=== PATIENT | female | born 1950 | race Caucasian/White ===

== ENCOUNTER 2016-12-09 23:17 | Emergency (ER) | payer MEDICARE, OTHER ==
[~2016-12-09 23:17] MED LIST: ACET500CAP PO; ASA5GR PO; ASAB PO; ATEN100 PO; ATEN50 PO; ATRONASAL6 NAS; AZO-STANDARD95 MG OR; C1 PO; C25 PO; C5 PO; CEFT5 PO; CENTRUM PO; CENTRUM TAB1 TAB PO; CIP2 PO; CLEOCIN300 MG PO; COMBIVENT INH; COUMADIN10 MG PO; COUMADIN6 MG PO; COUMADIN7.5 MG PO; CYMBALTA60 PO; D.O.S.100 MG PO; DEPAKOT500 PO; DEPAKOTEER PO; DSS PO; DUONEB INH; FIORICET OR; FLEX PO; FLONASE NAS; FLOVENT220 INH; FLUOXETINE40 MG OR; FOLIC PO; FORTAMET500 MG PO; GLUCAGON IM/SC; GLUCAGON IV/IM/SC; GLUCOPHXR PO; HUMALOG SC; IMDUR30 PO; IMDUR60 PO; IMU PO; IMURAN50 M1 OR; IMURAN50 MG OR; INSNOVR SC; JANTOVEN6 MG PO; JANTOVEN7.5 MG PO; KAPIDEX60 MG PO; KLONO1 PO; KLONO2 PO; L40 PO; LANTUS FOR SC; LANTUS SC; LEVEMIR SC; LEVOTHROID137 MCG PO; LEVOTHROID200 MCG PO; LEVOTHYROXIN125 MCG PO; LEVOTHYROXIN137 MCG PO; LINZESS 290 M290 MCG PO; LORT7 PO; LYRICA300 MG PO; LYRICA75 PO; METHOC750B PO; MEVACOR PO; MEVACOR40 MG PO; MIRALAXPKT PO; MORPHINE SULFATE; NABUMETONE PO; NABUMETONE750 MG PO; NEUR600 PO; NEUR800 PO; NOVOLOG SC; NOVOPEN SC; NOVOPENMIX SC; NYSTATPOW TOP; OMNICEF300 PO; OPANA; OPANA ER10 MG PO; OPANA ER15 MG PO; OPANA ER30 MG PO; OXYCOD PO; PEP20 PO; PEPCID40 MG OR; PEPCID40 MG PO; PERPHENAZINE2 MG OR; PLAVIX PO; PR25 PO; PRILOSEC40 MG PO; PRIN5 PO; PROVHFA INH; PROZAC40 MG PO; RISP4 PO; ROXICODONE15 MG PO; ROXICODONE30 MG PO; SINGULAIR1 PO; SYN112 PO; SYN125 PO; SYNTHROID137 MCG PO; SYNTHROID200 MCG PO; TOPAMAX100 PO; TOPAMAX25 PO; TRAZ100 PO; TRAZ50 PO; TRILEP150 PO; TUSSIN DM1 M1 OR; TYLENOL 8 HR650 MG PO; VITAMIN D1000 UNI1 PO; VITD PO; WARFARIN; XARELTO20 MG PO; ZESTRIL5 MG PO; ZITHROMAX500 MG PO; ZOFRAN4 PO; ZYRTEC ALLGY10 MG PO; [UNRECOGNIZED DRUG - OTHER]
[2016-12-10 00:06] LABS: BASOPHILS 0.4 %; BASOPHILS ABSOLUTE 0.03 10/3/uL (0.0-0.16); EOSINOPHILS 1.1 %; EOSINOPHILS ABSOLUTE 0.08 10/3/uL (0.0-0.53); ER CBC TAT 0 Hrs 05 Mins; HEMATOCRIT 36.4 % (36.0-48.0); IMMATURE GRANULOCYTES 0.6 %; IMMATURE GRANULOCYTES ABSOLUTE 0.04 10/3/uL (0.0-0.11); LYMPHOCYTES 22.6 %; MEAN CORPUSCULAR HEMOGLOB 30.5 pg (26.0-34.0); MEAN PLATELET VOLUME 9.7 fL (9.2-13.0); MONOCYTES 6.6 %; MONOCYTES ABSOLUTE 0.47 10/3/uL (0.21-1.20); NEUTROPHILS 68.7 %; NEUTROPHILS ABSOLUTE 4.86 10/3/uL (2.02-8.40); PLATELET COUNT 234 10/3/uL (150-400); RED CELL COUNT 3.93 10/6/uL (4.0-5.6); WHITE BLOOD CELLS 7.1 10/3/uL (4.5-10.5)
[2016-12-10 00:07] LABS: MANUAL DIFF NO %; MEAN CORPUSCULAR VOLUME 92.6 fL (80-100); RBC DISTRIBUTION WIDTH 14.1 % (12.0-16.0)
[2016-12-10 00:11] LABS: INTERNATIONAL NORMAL RATI 1.6 UNITS (-); PROTIME (NOT ORD) 19.1 SEC (12.0-14.5)
[2016-12-10 00:41] LABS: A/G RATIO 0.9 (0.7-1.9); ALBUMIN 3.4 G/DL (3.5-5.0); ALKALINE PHOSPHATASE 182 U/L (45-117); BUN (BLOOD UREA NITROGEN) 13 MG/DL (6-23); CHLORIDE, SERUM 95 MMOL/L (96-112); CO2 (CARBON DIOXIDE) 31 MMOL/L (24-34); CREATININE 0.83 MG/DL (0.55-1.02); GFR AFRICAN AMERICAN 85 ML/MIN (>=60); GFR NON AFRICAN AMERICAN 73 ML/MIN (>=60); GLOBULIN 3.7 G/DL (2.5-4.1); SGOT(AST) 15 U/L (5-40); SGPT(ALT) 15 U/L (5-65); TOTAL BILIRUBIN 0.6 MG/DL (0-1.2); TOTAL PROTEIN 7.1 G/DL (6.0-8.5); TROPONIN I <0.02 NG/ML (<0.05)
[2016-12-10 00:47] LABS: CALCIUM, SERUM 8.8 MG/DL (8.5-10.4); GLUCOSE, SERUM 293 MG/DL (60-99); POTASSIUM, SERUM 4.4 MMOL/L (3.5-5.3); SODIUM, SERUM 136 MMOL/L (135-148)
[2017-01-07] MEDS ORDERED: CLEOCIN300 MG PO (16:46)
[2017-01-07] MEDS ORDERED: LIOR10 PO (16:46)
[2017-01-07] MEDS ORDERED: HUMALOG SC (16:47)
[2017-01-07] MEDS ORDERED: FLUCON1 PO (16:47)
[2017-01-07] MEDS ORDERED: NITROSTAT0.4 MG SL (16:48)
[2017-01-07] MEDS ORDERED: ATROVENTUD INH (16:48)
[2017-01-07] MEDS ORDERED: NYS500UDL PO (16:49)
[2017-01-11] MEDS ORDERED: MUCINEX600 MG PO (16:15)
[2017-01-11] MEDS ORDERED: NEUR300 PO (16:16)
[2017-01-11] MEDS ORDERED: VOLTAREN1 % TOP (16:17)
[2017-01-11] MEDS ORDERED: XOPENEX1.25 MG/3 INH (16:18)
[2017-01-12] MEDS ORDERED: PLAVIX PO (10:25)
[2017-01-12] MEDS ORDERED: LIPITOR40 PO (10:26)
== END 2016-12-10 02:37 | disposition home or self-care (01) ==
LOC: ER 23:17
PROVIDERS: Emergency Medicine
DX: R07.89 Other chest pain (principal); L03.115 Cellulitis of right lower limb; Z88.1 Allergy status to other antibiotic agents; Z88.0 Allergy status to penicillin; Z88.2 Allergy status to sulfonamides; Z88.5 Allergy status to narcotic agent; Z91.09 Other allergy status, other than to drugs and biological substances; Z91.018 Allergy to other foods; Z91.013 Allergy to seafood; Z91.048 Other nonmedicinal substance allergy status; Z79.4 Long term (current) use of insulin; Z79.84 Long term (current) use of oral hypoglycemic drugs; Z79.82 Long term (current) use of aspirin; Z79.899 Other long term (current) drug therapy
CPT/HCPCS: 71010; 80053; 84484; 85025; 85610; 93005; 96374; 99285; A9270-GY; J1885; J2405

== ENCOUNTER 2016-12-31 19:05 | Emergency (ER) | payer BC, MEDICARE ==
[2016-12-31 17:50] LABS: BASOPHILS 0.1 %; BASOPHILS ABSOLUTE 0.01 10/3/uL (0.0-0.16); EOSINOPHILS 0.8 %; EOSINOPHILS ABSOLUTE 0.06 10/3/uL (0.0-0.53); HEMATOCRIT 34.2 % (36.0-48.0); HEMOGLOBIN 11.4 g/dL (12.0-16.0); IMMATURE GRANULOCYTES 0.4 %; IMMATURE GRANULOCYTES ABSOLUTE 0.03 10/3/uL (0.0-0.11); LYMPHOCYTES 14.8 %; MEAN CORPUS HGB CONC 33.3 g/dL (32.0-36.0); MEAN CORPUSCULAR HEMOGLOB 30.2 pg (26.0-34.0); MEAN CORPUSCULAR VOLUME 90.5 fL (80-100); MEAN PLATELET VOLUME 9.5 fL (9.2-13.0); MONOCYTES 4.8 %; MONOCYTES ABSOLUTE 0.36 10/3/uL (0.21-1.20); NEUTROPHILS 79.1 %; NEUTROPHILS ABSOLUTE 5.88 10/3/uL (2.02-8.40); PLATELET COUNT 247 10/3/uL (150-400); RBC DISTRIBUTION WIDTH 14.2 % (12.0-16.0); RED CELL COUNT 3.78 10/6/uL (4.0-5.6); WHITE BLOOD CELLS 7.4 10/3/uL (4.5-10.5)
[2016-12-31 17:51] LABS: MANUAL DIFF NO %
[2016-12-31 18:05] LABS: PARTIAL THROMBO TIME 33.6 SEC (22.5-37.2)
[2016-12-31 18:07] LABS: BUN (BLOOD UREA NITROGEN) 14 MG/DL (6-23); CALCIUM, SERUM 8.1 MG/DL (8.5-10.4); CHEST PAIN PROFILE TAT 0 Hrs 21 Mins; CHLORIDE, SERUM 96 MMOL/L (96-112); CO2 (CARBON DIOXIDE) 35 MMOL/L (24-34); CREATININE 0.88 MG/DL (0.55-1.02); D-DIMER QUANTITATIVE 0.55 ug/mLFEU (< 0.50); GFR AFRICAN AMERICAN 79 ML/MIN (>=60); GFR NON AFRICAN AMERICAN 68 ML/MIN (>=60); POTASSIUM, SERUM 3.8 MMOL/L (3.5-5.3); SODIUM, SERUM 136 MMOL/L (135-148); TROPONIN I <0.02 NG/ML (<0.05)
[2016-12-31 18:09] LABS: GLUCOSE, SERUM 136 MG/DL (60-99)
[2016-12-31 18:10] LABS: PROTIME (NOT ORD) 13.4 SEC (12.0-14.5)
[2017-01-07] MEDS ORDERED: CLEOCIN300 MG PO (16:46)
[2017-01-07] MEDS ORDERED: LIOR10 PO (16:46)
[2017-01-07] MEDS ORDERED: FLUCON1 PO (16:47)
[2017-01-07] MEDS ORDERED: HUMALOG SC (16:47)
[2017-01-07] MEDS ORDERED: NITROSTAT0.4 MG SL (16:48)
[2017-01-07] MEDS ORDERED: ATROVENTUD INH (16:48)
[2017-01-07] MEDS ORDERED: NYS500UDL PO (16:49)
[2017-01-11] MEDS ORDERED: MUCINEX600 MG PO (16:15)
[2017-01-11] MEDS ORDERED: NEUR300 PO (16:16)
[2017-01-11] MEDS ORDERED: VOLTAREN1 % TOP (16:17)
[2017-01-11] MEDS ORDERED: XOPENEX1.25 MG/3 INH (16:18)
[2017-01-12] MEDS ORDERED: PLAVIX PO (10:25)
[2017-01-12] MEDS ORDERED: LIPITOR40 PO (10:26)
== END 2016-12-31 22:54 | disposition home or self-care (01) ==
LOC: ER 19:05
PROVIDERS: Specialist
DX: R07.9 Chest pain, unspecified (principal); I25.2 Old myocardial infarction; Z86.73 Personal history of transient ischemic attack (TIA), and cerebral infarction without residual deficits; Z88.1 Allergy status to other antibiotic agents; Z88.0 Allergy status to penicillin; Z88.2 Allergy status to sulfonamides; Z88.5 Allergy status to narcotic agent; Z91.013 Allergy to seafood; Z79.899 Other long term (current) drug therapy; Z79.4 Long term (current) use of insulin
CPT/HCPCS: 71010; 71275; 80048; 83735; 84484; 85025; 85379; 85610; 85730; 93005; 96374; 96375; 99285; A9270-GY; J1200; J2405; J2930; Q9967

== ENCOUNTER 2017-01-17 21:54 | Inpatient (IN) | payer MEDICARE, OTHER ==
--- NOTE | ~2017-01-17 | CN ---
Consultation Report [id number] [facility] [place]. [address] NAME: KENDRA COLLADO : 50 STATUS : ADM IN [facility]#: [id number] AGE: 66 ADM/REG DATE : 01/18/17 MR#: [id number] REPORT SERV DATE: 01/18/17 DICTATED BY: BIJAN SNOWDEN DATE: 01/18/17 REPORT STATUS : Draft TRANSCRIBED BY: MODPedro Luis DATE: 01/18/17 CARDIOLOGY CONSULTATION DATE OF CONSULTATION: REASON FOR CONSULTATION: Chest pain. PHYSICIAN: Dr. Antoni Montilla. HISTORY OF PRESENT ILLNESS: Ms. Collado is a 66-year-old woman with a history of coronary artery disease and multiple other medical problems. She has had problems with chest pain in the past and had abnormal stress test. She underwent coronary arteriography and multi- vessel stenting by Dr. Montilla in 11/2016. Last month, she reports she felt better after that time and actually did well until yesterday when she was going to zoroastrian and just felt poorly. She felt weak, tired, and had severe chest pain in the midsternum to the left shoulder and back. She has significant chest wall tenderness, which was noted now and in the emergency room. This is not similar to previous chest pain that she has had. She was brought to the hospital and admitted, and it is also noted, she had some mental status changes that were unclear. She currently has ongoing chest pain, which is tender to palpation. It is not necessarily exertion. She has had no fevers or chills. No nausea. She is somewhat sleepy now after getting morphine. REVIEW OF SYSTEMS: The review of systems is as per the history of present illness. 10 other systems are negative. PAST MEDICAL HISTORY: 1. Coronary artery disease with history of multivessel stenting of the LAD x2 and RCA by Dr. Montilla in 11/2016. 2. DVT and PE, on chronic anticoagulation. 3. Rheumatoid arthritis. 4. Severe debilitation. The patient uses a wheelchair a lot to get around. 5. History of stroke. 6. Hypertension. 7. Diabetes. 8. Morbid obesity. 9. IV dye allergy. FAMILY HISTORY: Noncontributory. SOCIAL HISTORY: No reported tobacco. ALLERGIES: PENDING. Consultation Report [place] [address] [facility] [place]. [address] NAME: KENDRA COLLADO : 50 STATUS : ADM IN PAT#: [id number] AGE: 66 ADM/REG DATE : 01/18/17 MR#: [id number] REPORT SERV DATE: 01/18/17 DICTATED BY: BIJAN SNOWDEN DATE: 01/18/17 REPORT STATUS : Draft TRANSCRIBED BY: MODL DATE: 01/18/17 HOME MEDICATION: Pending. PHYSICAL EXAMINATION: VITAL SIGNS: Heart rate 75, blood pressure 140/49. GENERAL: The patient is a pleasant, obese white female. She is somewhat sleepy, although easily arousable and answers questions appropriately. NECK: Supple. Jugular venous pressure I cannot appreciate given her thick neck. CARDIOVASCULAR: Regular rate and rhythm. Normal S1, S2. Distant heart sounds. No gallops. LUNGS: Decreased breath sounds in the bases. There was diffuse chest wall tenderness. Very tender across the anterior chest wall, left upper chest, and in the left shoulder area. ABDOMEN: Obese, soft. EXTREMITIES: No edema. DATA: EKG shows sinus rhythm, poor R-wave progression, possible inferior [place], age undetermined. LABS: Negative troponin. White blood cell count is normal. Sedimentation rate and C- reactive protein are elevated. Minimal elevation in ammonia level. IMPRESSION: 1. Chest pain, likely noncardiac. 2. Chest wall pain and tenderness. 3. Coronary artery disease, history of stenting, three stents, 12/2016. 4. Morbid obesity. 5. History of deep venous thrombosis and pulmonary embolism, on chronic anticoagulation. 6. Diabetes. 7. Hypertension. 8. Rheumatoid arthritis. 9. History of stroke. RECOMMENDATIONS: Ms. Collado presents with chest pain and clearly chest wall pain. She does have a history of coronary artery disease. She has no acute EKG changes. Troponins are negative x2. At the time of her catheterization, she was noted to have a jailed diagonal branch. I do not think a stress test would be helpful and would not pursue arteriography in this case unless she has objective findings of ischemia such as elevated troponin or dynamic EKG changes. Thank you for this consultation. Please contact me if you have any further questions. I do recommend continued use of Plavix, which is not on the med list from her primary care's office, but she reports she has been taking it. I will reinstitute that now. WO/MODL Consultation Report [facility] [address] [place]. [address] NAME: KENDRA COLLADO : 50 STATUS : ADM IN PAT#: [id number] AGE: 66 ADM/REG DATE : 01/18/17 MR#: [id number] REPORT SERV DATE: 01/18/17 DICTATED BY: BIJAN SNOWDEN DATE: 01/18/17 REPORT STATUS : Draft TRANSCRIBED BY: MYRA DATE: 01/18/17 Bijan Snowden M.D., Ph.D, F.A.C.C. / [id number] CC: Refugio Matthew TRACY
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
--- NOTE | ~2017-01-17 | HP ---
History And Physical [place] [address] [place]. [address] NAME: KENDRA COLLADO : 50 STATUS : ADM IN [facility]#: [id number] AGE: 66 ADM/REG DATE : 01/18/17 MR#: [id number] REPORT SERV DATE: 01/18/17 DICTATED BY: PEDRO MARTINEZ DATE: 01/18/17 REPORT STATUS : Draft TRANSCRIBED BY: MODL DATE: 01/18/17 DATE OF ADMISSION: 01/18/2017 REASON FOR ADMISSION: Chest pain. HISTORY OF PRESENT ILLNESS: Ms. Collado is a 66-year-old female with coronary artery disease, type 2 diabetes, hypertension, lupus, COPD with a FEV1 of 38%, obesity, status post admission for chest pain. She was diagnosed with multivessel disease but was not considered a candidate for coronary artery bypass graft and received a percutaneous intervention with 3 stents on 01/12/2017. Discharged the following day after which she felt well, ambulating with a walker for short distances, good mental status and in good spirits. On 01/17/2017, she began having abdominal pain, nausea, vomiting, increased weakness, and lethargy. The chest pain had recurred, and she was brought back to the hospital for the altered mental status and chest pain. There was no benefit with nitroglycerin, although it did make her headache worse. The chest pain is currently 9 out of 10 and associated with shortness of breath, dizziness, and headache as mentioned. She had nausea, vomiting, and diarrhea today. No fever and chills. No coughing or wheezing. Appetite had been okay. Increased joint pain is noted. There has been a concern about some all-over body spasms with what sounds like myoclonus. There also has been some numbness in the left upper extremity which seems to have occurred after a recent fall with some left shoulder bruising associated with that. REVIEW OF SYSTEMS: The remaining review of systems is negative. PAST MEDICAL HISTORY: As mentioned above history of recent C-spine operation and a history venous thromboembolic disease in the past. MEDICATIONS: Include Lasix, Imuran, Prozac, Synthroid, multivitamin, Levemir, Klonopin, trazodone, MiraLAX, aspirin, folic acid, Linzess, metformin, Xarelto, ProAir, Percocet, Prilosec, multivitamin, Lyrica, Robaxin, Trileptal, and Advair. ALLERGIES: NUMEROUS ALLERGIES. FAMILY HISTORY: Positive for coronary artery disease and diabetes. SOCIAL HISTORY: The patient is a remote smoker. PHYSICAL EXAMINATION: VITAL SIGNS: On presentation, blood pressure 190/79, pulse 73, respirations 17, afebrile, and satting 98%. Repeat blood pressure 148/55. GENERAL: On exam, lethargic white female alert and oriented x3 and in no apparent distress. HEENT: Pupils are equal and reactive to light. Extraocular movements are intact. No cranial nerve deficits. Moist mucous membranes. Normal oropharynx. NECK: Reveals no jugular venous distention, carotid bruits, lymphadenopathy, or goiter. CARDIAC: Regular rate and rhythm. No murmurs, gallops, or rubs. A very tender precordium is noted from the xiphoid on up. History And Physical [address] [address] NAME: KENDRA COLLADO : 50 STATUS : ADM IN [facility]#: [id number] AGE: 66 ADM/REG DATE : 01/18/17 MR#: [id number] REPORT SERV DATE: 01/18/17 DICTATED BY: PEDRO MARTINEZ DATE: 01/18/17 REPORT STATUS : Draft TRANSCRIBED BY: MYRA DATE: 01/18/17 LUNGS: Clear to auscultation bilaterally. Good excursion. ABDOMEN: Soft, nontender, and obese. Bowel sounds normal and active other than the subxiphoid area. EXTREMITIES: 1+ edema bilaterally with some mild erythema. No substantial calf tenderness although some generalized hyperesthesia is noted. She has good pulses and capillary refill. NEUROLOGIC: She has 3/5 strength in all four extremities which is somewhat worse distally than proximally in all 4 limbs. Sensory function is diminished in the toes but normal elsewhere. PSYCHIATRIC: She is appropriate. LABORATORY DATA: Laboratory evaluation, pH of 7.42, pCO2 of 47, and PO2 of 76. Sodium 133, potassium 2.6, chloride 95, bicarb 36, BUN 13, creatinine 0.7, and glucose 48. LFTs negative. Ammonia 58. White count 7000. Hemoglobin and hematocrit 11/33, platelets 244, troponin I negative. Chest x-ray, no apparent disease. CT of brain was negative. EKG, normal sinus rhythm, inferior Q-waves. ASSESSMENT AND PLAN: Chest pain. DIFFERENTIAL DIAGNOSIS: Includes 1. GI, pericardial venous thromboembolic disease, much more likely than coronary given the deeper disability. We will go and check a CTA. GI cocktail with Protonix IV will be given. We should rule out myocardial infarction and also be very aware of the possibility of lupus flare with pericarditis or serositis. Sedimentation rate and C- reactive peptide will be checked. Pain control will be instituted. 2. Altered mental status with lethargy and nonfocal exam, hypoglycemia certainly contributed mildly to this. However, I am also very concerned about her numerous psychoactive medications, and I am concerned that she may have had a medication error today. Due to the vast number of medicines on the list, this may occur very easily. We should rule out urinary tract infection. We will minimize the use of her medicines eliminating or reducing all the sedating medications especially while getting pain control. I am optimistic this will improve with time. I see no indication for an MRI at this time. 3. Hypertension exacerbated by pain, continue present management. 4. Type 2 diabetes, hypoglycemia, dextrose will be given intravenously overnight while she remains n.p.o. We will begin to advance her diet sooner, resume the Levemir later. 5. Nausea and vomiting, this is likely related to her chest pain. I am very concerned particularly about esophageal spasm, Carafate and symptomatic care will be offered at this time. No evidence of a severe infection at this time. However, we will follow up her labs and clinical status. 6. Lupus, question the activity of this disease. She does not have any active joint inflammation nor fever; however, sedimentation rate, C-reactive peptide, and quantitative double-stranded DNA will be helpful. History And Physical [address] [place]. [address] NAME: KENDRA COLLADO : 50 STATUS : ADM IN PAT#: [id number] AGE: 66 ADM/REG DATE : 01/18/17 MR#: [id number] REPORT SERV DATE: 01/18/17 DICTATED BY: PEDRO MARTINEZ DATE: 01/18/17 REPORT STATUS : Draft TRANSCRIBED BY: MYRA DATE: 01/18/17 RSMarina/MODL Pedro Martinez M.D. / [id number] CC: Refugio Matthew M.D.
[~2017-01-17 21:54] MED LIST changes: +ATROVENTUD INH; +FLUCON1 PO; +LIOR10 PO; +LIPITOR40 PO; +MUCINEX600 MG PO; +NEUR300 PO; +NITROSTAT0.4 MG SL; +NYS500UDL PO; +VOLTAREN1 % TOP; +XOPENEX1.25 MG/3 INH
[2017-01-17 22:48] LABS: BASOPHILS 0.6 %; BASOPHILS ABSOLUTE 0.04 10/3/uL (0.0-0.16); EOSINOPHILS 1.5 %; EOSINOPHILS ABSOLUTE 0.11 10/3/uL (0.0-0.53); ER CBC TAT 0 Hrs 03 Mins; HEMATOCRIT 33.5 % (36.0-48.0); HEMOGLOBIN 11.3 g/dL (12.0-16.0); IMMATURE GRANULOCYTES 0.6 %; IMMATURE GRANULOCYTES ABSOLUTE 0.04 10/3/uL (0.0-0.11); LYMPHOCYTES 16.8 %; MEAN CORPUS HGB CONC 33.7 g/dL (32.0-36.0); MEAN CORPUSCULAR HEMOGLOB 30.2 pg (26.0-34.0); MEAN CORPUSCULAR VOLUME 89.6 fL (80-100); MEAN PLATELET VOLUME 9.1 fL (9.2-13.0); MONOCYTES 6.4 %; MONOCYTES ABSOLUTE 0.46 10/3/uL (0.21-1.20); NEUTROPHILS 74.1 %; NEUTROPHILS ABSOLUTE 5.29 10/3/uL (2.02-8.40); PLATELET COUNT 244 10/3/uL (150-400); RBC DISTRIBUTION WIDTH 13.8 % (12.0-16.0); RED CELL COUNT 3.74 10/6/uL (4.0-5.6); WHITE BLOOD CELLS 7.1 10/3/uL (4.5-10.5)
[2017-01-17 22:49] LABS: MANUAL DIFF NO %
[2017-01-17 23:04] LABS: BUN (BLOOD UREA NITROGEN) 13 MG/DL (6-23); CALCIUM, SERUM 8.7 MG/DL (8.5-10.4); CHEST PAIN PROFILE TAT 0 Hrs 19 Mins; CHLORIDE, SERUM 95 MMOL/L (96-112); CO2 (CARBON DIOXIDE) 36 MMOL/L (24-34); CREATININE 0.72 MG/DL (0.55-1.02); GFR AFRICAN AMERICAN 101 ML/MIN (>=60); GFR NON AFRICAN AMERICAN 87 ML/MIN (>=60); POTASSIUM, SERUM 3.6 MMOL/L (3.5-5.3); SODIUM, SERUM 133 MMOL/L (135-148); TROPONIN I <0.02 NG/ML (<0.05)
[2017-01-17 23:05] LABS: GLUCOSE, SERUM 48 MG/DL (60-99)
[2017-01-17 23:11] LABS: BE (BASE EXCESS) 4.7 MEQ/L (0 +/- 2.5); CARBOXYHEMOGLOBIN 1.4 % (0-3); HCO3 (ACTUAL BICARBONATE) 29.9 MEQ/L (23-27); HEMOBLOGIN CONTENT 11.7 G/DL (12-16); INSTRUMENT SERIAL # 8087; METHEMOGLOBIN 0.2 % (0-3); O2 CONTENT 15.4 VOL% (18-24); PCO2 (CO2 TENSION) 47 MMHG (35-45); PO2 (O2 TENSION) 76 MMHG (79-93); SAMPLE Arterial; pH 7.42 (7.37-7.43)
[2017-01-18 00:43] LABS: ALBUMIN 3.6 G/DL (3.5-5.0); ALKALINE PHOSPHATASE 166 U/L (45-117); DIRECT BILIRUBIN < 0.1 MG/DL (0.0-0.4); INDIRECT BILIRUBIN(NOT ORDER) 0.2 MG/DL (0.1-0.9); SGOT(AST) 16 U/L (5-40); SGPT(ALT) 16 U/L (5-65); TOTAL BILIRUBIN 0.3 MG/DL (0-1.2); TOTAL PROTEIN 6.7 G/DL (6.0-8.5); ULTRASENSITIVE TSH 0.945 MCIU/ML (0.358-3.740)
[2017-01-18 02:59] LABS: ASCORBIC ACID (UR NOT ORDER) NEG (NEG); BILIRUBIN, URINE NEGATIVE (NEG); ER URINALYSIS TAT 0 Hrs 07 Mins; KETONE, URINE NEGATIVE (NEG); NITRITE (URINE) NEG (NEG); WBC (NOT ORDERED) (RFLEX) 6 (0-5)
[2017-01-18 03:02] LABS: LEUKOCYTE ESTERASE(NOT OR TRACE (NEG)
[2017-01-18 06:35] LABS: D-DIMER QUANTITATIVE 0.82 ug/mLFEU (< 0.50)
[2017-01-18 06:44] LABS: C-REACTIVE PROTEIN 17.1 MG/L (<8.0); CPK (IF ELEVATED MB BANDS) 62 U/L (0-200); TROPONIN I <0.02 NG/ML (<0.05)
[2017-01-18 11:25] LABS: CPK (IF ELEVATED MB BANDS) 56 U/L (0-200); TROPONIN I <0.02 NG/ML (<0.05)
[2017-01-18] MEDS ORDERED: BEN25 PO ×2 (11:25→12:19)
[2017-01-18] MEDS ORDERED: DSS PO ×2 (11:27→12:19)
[2017-01-18] MEDS ORDERED: HUMALOG SC (12:07)
[2017-01-18] MEDS ORDERED: L40 PO (12:08)
[2017-01-18] MEDS ORDERED: PROZAC40 MG PO (12:08)
[2017-01-18] MEDS ORDERED: IMU PO (12:08)
[2017-01-18] MEDS ORDERED: LEVEMIR SC ×2 (12:09)
[2017-01-18] MEDS ORDERED: CENTRUM PO (12:09)
[2017-01-18] MEDS ORDERED: LEVOTHYROXIN200 MCG PO (12:09)
[2017-01-18] MEDS ORDERED: TRAZ100 PO (12:10)
[2017-01-18] MEDS ORDERED: KLONO1 PO (12:10)
[2017-01-18] MEDS ORDERED: MIRALAX POWDER1 PKT PO (12:10)
[2017-01-18] MEDS ORDERED: FOLIC PO (12:11)
[2017-01-18] MEDS ORDERED: ASAB PO (12:11)
[2017-01-18] MEDS ORDERED: GLUCOPHXR PO (12:12)
[2017-01-18] MEDS ORDERED: LINZESS 290 M290 MCG PO (12:12)
[2017-01-18] MEDS ORDERED: XARELTO20 MG PO (12:12)
[2017-01-18] MEDS ORDERED: PROAIR HFA INH (12:13)
[2017-01-18] MEDS ORDERED: ROXICODONE15 MG PO (12:13)
[2017-01-18] MEDS ORDERED: ACET500CAP PO (12:14)
[2017-01-18] MEDS ORDERED: SINGULAIR1 PO (12:14)
[2017-01-18] MEDS ORDERED: PRILOSEC40 MG PO (12:14)
[2017-01-18] MEDS ORDERED: LYRICA75 PO (12:15)
[2017-01-18] MEDS ORDERED: METHOC750B PO (12:15)
[2017-01-18] MEDS ORDERED: TRILEP150 PO (12:17)
[2017-01-18] MEDS ORDERED: PLAVIX PO (12:17)
[2017-01-18] MEDS ORDERED: FLONASE NAS (12:18)
[2017-01-18] MEDS ORDERED: ADVAIR230P INH (12:18)
[2017-01-18] MEDS ORDERED: PR25 PO (12:18)
[2017-01-18] MEDS ORDERED: MUCINEX DM TABLET PO (12:19)
[2017-01-18] MEDS ORDERED: XOPENEX1.25 MG/3 INH (12:20)
[2017-01-18] MEDS ORDERED: ATRONASAL6 NAS (12:20)
[2017-01-18] MEDS ORDERED: NEUR300 PO (12:21)
[2017-01-18] MEDS ORDERED: LIOR10 PO (12:21)
[2017-01-18] MEDS ORDERED: VOLTAREN1 % TOP (12:21)
[2017-01-19 07:08] LABS: BASOPHILS 0.5 %; BASOPHILS ABSOLUTE 0.02 10/3/uL (0.0-0.16); EOSINOPHILS 3.5 %; EOSINOPHILS ABSOLUTE 0.15 10/3/uL (0.0-0.53); HEMATOCRIT 36.2 % (36.0-48.0); HEMOGLOBIN 11.4 g/dL (12.0-16.0); IMMATURE GRANULOCYTES 0.7 %; IMMATURE GRANULOCYTES ABSOLUTE 0.03 10/3/uL (0.0-0.11); LYMPHOCYTES 29.6 %; LYMPHOCYTES ABSOLUTE 1.27 10/3/uL (0.67-4.30); MEAN CORPUSCULAR HEMOGLOB 29.5 pg (26.0-34.0); MEAN PLATELET VOLUME 9.8 fL (9.2-13.0); MONOCYTES 9.6 %; MONOCYTES ABSOLUTE 0.41 10/3/uL (0.21-1.20); NEUTROPHILS 56.1 %; NEUTROPHILS ABSOLUTE 2.41 10/3/uL (2.02-8.40); PLATELET COUNT 223 10/3/uL (150-400); RBC DISTRIBUTION WIDTH 14.6 % (12.0-16.0); RED CELL COUNT 3.87 10/6/uL (4.0-5.6); WHITE BLOOD CELLS 4.3 10/3/uL (4.5-10.5)
[2017-01-19 07:09] LABS: CALCIUM, SERUM 8.1 MG/DL (8.5-10.4); CHLORIDE, SERUM 101 MMOL/L (96-112); CREATININE 0.79 MG/DL (0.55-1.02); GFR AFRICAN AMERICAN 90 ML/MIN (>=60); GFR NON AFRICAN AMERICAN 78 ML/MIN (>=60); SODIUM, SERUM 138 MMOL/L (135-148)
[2017-01-19 07:11] LABS: BUN (BLOOD UREA NITROGEN) 8 MG/DL (6-23); CO2 (CARBON DIOXIDE) 30 MMOL/L (24-34); GLUCOSE, SERUM 192 MG/DL (60-99); POTASSIUM, SERUM 4.8 MMOL/L (3.5-5.3)
[2017-01-19 07:14] LABS: MANUAL DIFF NO %; MEAN CORPUS HGB CONC 31.5 g/dL (32.0-36.0); MEAN CORPUSCULAR VOLUME 93.5 fL (80-100)
== END 2017-01-19 13:20 | disposition home or self-care (01) | DRG 303 ==
LOC: ER 21:54 → 2SO 01-18 02:08
PROVIDERS: Hospitalist; Internal Medicine; Nurse Practitioner
DX: I25.10 Atherosclerotic heart disease of native coronary artery without angina pectoris (principal); E11.649 Type 2 diabetes mellitus with hypoglycemia without coma; M32.9 Systemic lupus erythematosus, unspecified; R07.89 Other chest pain; J44.9 Chronic obstructive pulmonary disease, unspecified; I10 Essential (primary) hypertension; R41.82 Altered mental status, unspecified; E66.01 Morbid (severe) obesity due to excess calories; M06.9 Rheumatoid arthritis, unspecified; Z83.3 Family history of diabetes mellitus; Z95.5 Presence of coronary angioplasty implant and graft; Z86.73 Personal history of transient ischemic attack (TIA), and cerebral infarction without residual deficits; Z82.49 Family history of ischemic heart disease and other diseases of the circulatory system; Z91.81 History of falling
CPT/HCPCS: 36600; 70450; 71010; 71275; 80048; 80076; 81001; 82140; 82550; 82805; 82962; 83036; 83690; 83735; 84443; 84484; 85025; 85379; 85610; 85652; 85730; 86140; 86225; 93005; 94640; 97161-GP; 99285; A9270-GY; C9113; G8978-CJ-GP; G8979-CJ-GP; G8980-CJ-GP; J1200; J7500; Q9967

== ENCOUNTER 2017-01-27 02:32 | Emergency (ER) | payer BC, MEDICARE ==
[~2017-01-27 02:32] MED LIST changes: +ADVAIR230P INH; +BEN25 PO; +LEVOTHYROXIN200 MCG PO; +MIRALAX POWDER1 PKT PO; +MUCINEX DM TABLET PO; +PROAIR HFA INH
[2017-01-27 02:42] LABS: BASOPHILS 0.4 %; BASOPHILS ABSOLUTE 0.03 10/3/uL (0.0-0.16); EOSINOPHILS 1.8 %; EOSINOPHILS ABSOLUTE 0.12 10/3/uL (0.0-0.53); HEMOGLOBIN 10.6 g/dL (12.0-16.0); IMMATURE GRANULOCYTES 0.6 %; IMMATURE GRANULOCYTES ABSOLUTE 0.04 10/3/uL (0.0-0.11); LYMPHOCYTES 11.5 %; LYMPHOCYTES ABSOLUTE 0.79 10/3/uL (0.67-4.30); MEAN CORPUSCULAR HEMOGLOB 29.9 pg (26.0-34.0); MEAN PLATELET VOLUME 9.7 fL (9.2-13.0); MONOCYTES 6.9 %; MONOCYTES ABSOLUTE 0.47 10/3/uL (0.21-1.20); NEUTROPHILS 78.8 %; PLATELET COUNT 252 10/3/uL (150-400); RED CELL COUNT 3.55 10/6/uL (4.0-5.6)
[2017-01-27 02:45] LABS: ER CBC TAT 0 Hrs 10 Mins; HEMATOCRIT 31.4 % (36.0-48.0); MANUAL DIFF NO %; MEAN CORPUS HGB CONC 33.8 g/dL (32.0-36.0); MEAN CORPUSCULAR VOLUME 88.5 fL (80-100); WHITE BLOOD CELLS 6.9 10/3/uL (4.5-10.5)
[2017-01-27 02:46] LABS: INTERNATIONAL NORMAL RATI 1.6 UNITS (-); PARTIAL THROMBO TIME 35.8 SEC (22.5-37.2)
[2017-01-27 02:49] LABS: PROTIME (NOT ORD) 18.5 SEC (12.0-14.5)
[2017-01-27 02:56] LABS: BUN (BLOOD UREA NITROGEN) 15 MG/DL (6-23); CALCIUM, SERUM 8.6 MG/DL (8.5-10.4); CHEST PAIN PROFILE TAT 0 Hrs 21 Mins; CHLORIDE, SERUM 93 MMOL/L (96-112); CO2 (CARBON DIOXIDE) 27 MMOL/L (24-34); CREATININE 0.91 MG/DL (0.55-1.02); GFR AFRICAN AMERICAN 76 ML/MIN (>=60); GFR NON AFRICAN AMERICAN 66 ML/MIN (>=60); GLUCOSE, SERUM 286 MG/DL (60-99); SODIUM, SERUM 131 MMOL/L (135-148); TROPONIN I <0.02 NG/ML (<0.05)
== END 2017-01-27 04:15 | disposition home or self-care (01) ==
LOC: ER 02:32
PROVIDERS: Specialist
DX: S76.012A Strain of muscle, fascia and tendon of left hip, initial encounter (principal); S40.012A Contusion of left shoulder, initial encounter; S50.02XA Contusion of left elbow, initial encounter; S80.12XA Contusion of left lower leg, initial encounter; I25.2 Old myocardial infarction; E11.9 Type 2 diabetes mellitus without complications; Z86.73 Personal history of transient ischemic attack (TIA), and cerebral infarction without residual deficits; Z95.5 Presence of coronary angioplasty implant and graft; W19.XXXA Unspecified fall, initial encounter
CPT/HCPCS: 71010; 73030-LT; 73080-LT; 73502-LT; 73590-LT; 80048; 83735; 84484; 85025; 85610; 85730; 90471; 90714; 96374; 96376; 99285; J3010

== ENCOUNTER 2017-02-11 17:59 | Inpatient (IN) | payer MEDICARE, OTHER ==
--- NOTE | ~2017-02-11 | HP ---
History And Physical [id number] [place]. [address] NAME: KENDRA COLLADO : 50 STATUS : ADM Silva PAT#: [id number] AGE: 66 ADM/REG DATE : 02/11/17 MR#: [id number] REPORT SERV DATE: 02/11/17 DICTATED BY: ARCELIA ROSA DATE: 02/11/17 REPORT STATUS : Draft TRANSCRIBED BY: MODL DATE: 02/11/17 DATE OF ADMISSION: 02/11/2017 POINT OF ENTRY: [facility] Emergency Department. PRIMARY CARE PHYSICIAN: Dr. Villar. PRIMARY REGISTERED MEDICAL TRANSCRIPTIONIST: Dr. Montilla. PRIMARY BANJO REPAIRER: Dr. Garcia. CHIEF COMPLAINT: Chest pain. HISTORY OF PRESENT ILLNESS: Ms. Collado is a 66-year-old female with a history of coronary artery disease with recent multi-vessel PCI by Dr. Montilla as well as hypertension, insulin- dependent diabetes mellitus type 2, COPD, hypothyroidism as well as a history of DVT/PE on chronic anticoagulation presents to the emergency room with acute onset of substernal chest pain as well as shortness of breath. Patient states that her chest pain began around lunch time when she is getting into the car after eating. She described it as severe 10/10 substernal chest pain, described as a pressure sensation with radiation to the left shoulder as well as shortness of breath. Patient also reports that she has noted some left lower extremity swelling, redness, pain, and tenderness for the past few days as well as some low-grade fevers, approximately 99 to 100 degrees Fahrenheit. She was started on oral doxycycline by her primary care physician earlier this morning for concerns for left lower extremity cellulitis in the setting of a recent mechanical fall with some trauma to that left lower extremity. Initial evaluation in the emergency room stable vital signs. Initial EKG was unremarkable. Repeat EKG performed for recurrent chest pain was also unremarkable and negative for ischemia. Cardiac enzymes were negative. Her hemoglobin was noted to be 8.8 with a recent value of 10.6 with no obvious source of blood loss. Patient was given some nitroglycerin as well as morphine for her chest pain and admitted to the Hospitalist Service. Given reports of recurrent severe chest pain, Cardiology was consulted and they will see patient in the morning, but recommended no changes to her current therapy as EKG and cardiac enzymes were unremarkable. REVIEW OF SYSTEMS: Comprehensive review of systems otherwise negative unless listed in history of present illness. PAST MEDICAL HISTORY: 1. Coronary artery disease with recent multivessel PCI to the LAD and PDA. 2. Hypertension. 3. Insulin-dependent diabetes mellitus type 2. History And Physical [address] [address] NAME: KENDRA COLLADO : 50 STATUS : ADM Silva PAT#: [id number] AGE: 66 ADM/REG DATE : 02/11/17 MR#: [id number] REPORT SERV DATE: 02/11/17 DICTATED BY: ARCELIA ROSA DATE: 02/11/17 REPORT STATUS : Draft TRANSCRIBED BY: MYRA DATE: 02/11/17 4. COPD. 5. Hypothyroidism. 6. DVT/PE, on chronic anticoagulation. 7. Morbid obesity. 8. Iron-deficiency anemia. 9. History of rheumatoid arthritis and lupus. SURGICAL HISTORY: 1. Abdominal hysterectomy. 2. Cholecystectomy. 3. Multiple D and Cs. ALLERGIES: 1. CIPROFLOXACIN. 2. PENICILLIN. 3. SULFA DRUGS. 4. IODINE. 5. LEVAQUIN. 6. CORTISONE. 7. PSEUDOEPHEDRINE. 8. TOMATO. 9. STRAWBERRY. 10.SHELLFISH. HOME MEDICATIONS: 1. Tylenol 500 mg t.i.d. p.r.n. 2. Albuterol one nebulization q.i.d. p.r.n. 3. Proventil two puffs inhalation q.4 hours p.r.n. 4. Aspirin 81 mg daily. 5. Atorvastatin 10 mg at bedtime. 6. Azathioprine 100 mg daily. 7. Baclofen 10 mg t.i.d. 8. Klonopin 1 mg at bedtime. 9. Plavix 75 mg daily. 10.Voltaren topical gel 2 g q.8 hours p.r.n. 11.Benadryl 25 mg at bedtime. 12.Docusate 200 mg at bedtime. 13.Flonase two sprays nasal daily. 14.Advair two puffs inhalation b.i.d. 15.Folic acid 1 mg daily. 16.Lasix 40 mg daily. 17.Gabapentin 300 mg t.i.d. p.r.n. 18.Insulin NovoLog 10 units with meals. 19.Levemir 30 units q.a.m. 20.Levemir 20 units q.p.m. 21.Xopenex one dose b.i.d. 22.Levothyroxine 200 mcg daily. History And Physical [address] [place]. [address] NAME: KENDRA COLLADO : 50 STATUS : ADM Silva PAT#: [id number] AGE: 66 ADM/REG DATE : 02/11/17 MR#: [id number] REPORT SERV DATE: 02/11/17 DICTATED BY: ARCELIA ROSA DATE: 02/11/17 REPORT STATUS : Draft TRANSCRIBED BY: MYRA DATE: 02/11/17 23.Linzess 290 mcg q.a.m. 24.Loratadine 10 mg daily. 25.Metformin XR 1500 mg with supper. 26.Robaxin 750 mg t.i.d. 27.Singulair 10 mg at bedtime. 28.Omeprazole 40 mg b.i.d. 29.Trileptal 150 mg at bedtime. 30.Roxicodone 15 mg q.6 hours p.r.n. 31.MiraLAX one packet daily. 32.Lyrica 75 mg at bedtime. 33.Phenergan 25 mg b.i.d. p.r.n. 34.Xarelto 20 mg at bedtime. 35.Trazodone 100 mg at bedtime. 36.Mucinex DM. SOCIAL HISTORY: Denies any tobacco, alcohol, or illicits. FAMILY HISTORY: Mother with ovarian cancer. Father with gastric cancer. She is an only child. LABS AND IMAGIN. White count 6.0, hemoglobin 8.8, hematocrit 27.9, platelets 315, INR 1.1. 2. Sodium is 135, potassium 3.9, chloride 95, carbon dioxide 34, BUN 15, creatinine 0.77, glucose is 109, calcium is 8.3, magnesium is 2.0. 3. Lactic acid 2.2. 4. Troponin less than 0.02. 5. EKG per my review shows normal sinus rhythm without evidence of any acute ischemia or infarction. Repeat EKG performed for recurrent chest pain also without any evidence of acute ischemia or infarction. 6. Chest x-ray per my review shows no acute cardiopulmonary abnormality. PHYSICAL EXAMINATION: VITAL SIGNS: Temperature is 97.4 degrees Fahrenheit, pulse is 77, respirations 32, saturating 100%, blood pressure is 137/66. GENERAL: Patient is awake, alert, in no acute distress, resting comfortably. She is a well- developed, well-nourished, elderly female who is morbidly obese. HEENT: Atraumatic and normocephalic. Moist mucous membranes. Pupils are equal, round, reactive to light and accommodation. Extraocular eye movements are intact. No scleral icterus. NECK: No jugular venous distention. No carotid bruits. CARDIAC: Regular rate and rhythm. No murmurs, rubs, or gallops. Normal S1, S2. She does have some tenderness on palpation over the precordium. LUNGS: Clear to auscultation bilaterally. No wheezes, rhonchi, or crackles. ABDOMEN: Soft, nontender, nondistended. Good bowel sounds. No rebound, guarding, or rigidity. Obese. EXTREMITIES: Left lower extremity is warm to the touch with some erythema, some tenderness on palpation as well as some swelling compared to the right lower extremity. History And Physical [address] [address] NAME: KENDRA COLLADO : 50 STATUS : ADM Silva PAT#: [id number] AGE: 66 ADM/REG DATE : 02/11/17 MR#: [id number] REPORT SERV DATE: 02/11/17 DICTATED BY: ARCELIA ROSA DATE: 02/11/17 REPORT STATUS : Draft TRANSCRIBED BY: MYRA DATE: 02/11/17 SKIN: Warm and dry except for noted above. PSYCH: Affect appropriate. NEURO: Alert and oriented x3. Cranial nerves II through XII grossly intact. Speech is normal. Gait not assessed. ASSESSMENT AND PLAN: Ms. Collado is a 66-year-old female who presents with acute onset of chest pain. PROBLEM LIST: 1. Recurrent chest pain. 2. Acute on chronic anemia. 3. History of iron deficiency anemia. 4. Left lower extremity cellulitis. 5. Chest wall pain, likely costochondritis. 6. History of coronary artery disease. 7. History of deep venous thrombosis/pulmonary embolism on anticoagulation. 8. History of insulin-dependent diabetes mellitus type 2. 9. History of chronic pain, on chronic narcotics. PLAN: 1. Recurrent chest pain. The patient had a recent cardiac catheterization earlier this month and has since been re-evaluated for reports of recurrent chest pain with negative EKG as well as cardiac enzyme evaluation. Her EKG and cardiac enzymes remain unremarkable here. Given tenderness on palpation along the precordium, I suspect this is all due to costochondritis due to chest wall pain. Given recurrent severe chest pain in the ER, Cardiology was consulted and they recommended continuation of patient's home aspirin, Plavix, Xarelto as well as statin. They would not recommend any invasive therapy at this time given negative EKG and cardiac enzymes. They will see patient in the morning. In the meantime, we will continue to trend out cardiac enzymes and EKGs as well as IV morphine as well as sublingual nitroglycerin p.r.n. for chest pain. 2. Acute on chronic anemia and history of iron deficiency anemia. Patient has a history of iron deficiency anemia, sees Dr. Garcia, receives IV iron infusions. She denies any obvious source of blood loss, but does have a hematoma in the left lower extremity from recent fall. We will transfuse if hemoglobin less than 7. We will check iron studies as well as Hemoccult and order a single dose of IV iron infusion per patient request as she states that she is scheduled to have this anyway next week with Dr. Garcia. 3. Left lower extremity cellulitis. Place patient on oral doxycycline given multiple antibiotic allergies. 4. Insulin-dependent diabetes mellitus type 2. Continue patient's home medications, holding metformin, place on level-one sliding scale. 5. History of DVT/PE, continue Xarelto. 6. DVT prophylaxis, on Xarelto. CODE STATUS: Patient wishes to be full code. History And Physical [address] [place]. [address] NAME: KENDRA COLLADO : 50 STATUS : ADM Silva PAT#: [id number] AGE: 66 ADM/REG DATE : 02/11/17 MR#: [id number] REPORT SERV DATE: 02/11/17 DICTATED BY: ARCELIA ROSA DATE: 02/11/17 REPORT STATUS : Draft TRANSCRIBED BY: MYRA DATE: 02/11/17 JCYohana/MODL Arcelia Rosa MD / [id number] CC: Refugio Garza M.D. Mark S Womack IV, M.D.
--- NOTE | ~2017-02-11 | CN ---
Consultation Report [facility] [address] [place]. [address] NAME: KENDRA COLLADO : 50 STATUS : ADM Silva PAT#: [id number] AGE: 66 ADM/REG DATE : 02/11/17 MR#: [id number] REPORT SERV DATE: 02/12/17 DICTATED BY: CHENG LOPEZ DATE: 02/12/17 REPORT STATUS : Draft TRANSCRIBED BY: MODL DATE: 02/12/17 INFECTIOUS DISEASE CONSULT DATE OF CONSULTATION: REASON FOR REFERRAL: Evaluation and treatment of cellulitis of left leg. HISTORY OF PRESENT ILLNESS: The patient is a 66-year-old female, she has a history of hypertension, diabetes mellitus, coronary artery disease, chronic obstructive pulmonary disease, and morbid obesity. She fell some two weeks ago and suffered trauma to her left lower extremity from the hip down to just below the knee with a large hematoma. She, subsequently, a week later began to get warmth and redness in the calf itself and marked swelling every time she stood up for any time more than a few minutes. She was seen yesterday by the primary care physician, started on doxycycline, but in the meantime, developed substernal chest pain and had to be admitted for that. I am consulted now to assist with treatment of the cellulitis. She has a still large hematoma over the thigh that just shows ecchymoses, the left calf is warm and red that looks better now that she has been in bed overnight. She has not had fevers, chills, malaise, or flu-like symptoms. There have been no open lesions or purulent drainage. No penetration, cut, scrapes, falls, abrasions with the fall. No unusual environmental exposures. PAST MEDICAL HISTORY: Otherwise unremarkable. MEDICATIONS: She has been started on doxycycline here as well. ALLERGIES: SHE IS ALLERGIC TO PENICILLIN, WHICH CAUSES A RASH; SULFA WHICH CAUSES A RASH; AND CIPRO WHICH CAUSES A RASH. SOCIAL HISTORY: She is disabled. She is and a nonsmoker. No history of alcohol or substance abuse. FAMILY HISTORY: Noncontributory. PHYSICAL EXAMINATION: GENERAL: Nontoxic, adult female, in no acute distress. Alert and oriented x3. VITAL SIGNS: Her temperature here has been normal, at present 97.7 with a pulse of 66, respirations 18, blood pressure 132/62, her weight is 109 kg. HEENT: Her sclerae are clear. No oral lesions. NECK: Supple. LUNGS: Clear. HEART: Regular rate and rhythm. ABDOMEN: Soft, nontender. Positive bowel sounds. EXTREMITIES: She has ecchymoses as previously described, along the lateral part of the leg with mild warmth and redness on the calf, it gets much worse if the leg is put down on the Consultation Report [address] [place]. [address] NAME: KENDRA COLLADO : 50 STATUS : ADM Silva PAT#: [id number] AGE: 66 ADM/REG DATE : 02/11/17 MR#: [id number] REPORT SERV DATE: 02/12/17 DICTATED BY: CHENG LOPEZ DATE: 02/12/17 REPORT STATUS : Draft TRANSCRIBED BY: MYRA DATE: 02/12/17 floor. LABORATORY DATA: Her white blood cell count 5.1, hematocrit 24.2, platelets 265. BUN and creatinine 11 and 0.7. She had blood cultures checked at presentation, and thus far, those are negative. IMPRESSION: Hematoma of the left leg after a fall that I think has led to a mild cellulitis probably due to making venous stasis worse and placing her at higher risk. It is most likely a strep, but there was one area of the hematoma that was open and draining that could have placed her at risk for Staph. RECOMMENDATIONS: 1. We will treat with vancomycin. 2. Elevation of leg to get the swelling down more quickly; this was emphasized effectively with the patient so that she understands. 3. Finally, I will follow the patient with you. I appreciate very much your consulting on this patient. DORETHA Cheng Lopez M.D. / [id number] CC: Refugio Garza TRACY
--- NOTE | ~2017-02-11 | CN ---
Consultation Report [id number] [place]. [address] NAME: KENDRA COLLADO : 50 STATUS : ADM Silva PAT#: [id number] AGE: 66 ADM/REG DATE : 02/11/17 MR#: [id number] REPORT SERV DATE: 02/15/17 DICTATED BY: ARCELIA GORDON JR. DATE: 02/12/17 REPORT STATUS : Draft TRANSCRIBED BY: MODPedro Luis DATE: 02/12/17 CARDIOLOGY CONSULTATION DATE OF CONSULTATION: [facility] GUM SPRAYER: Dr. Montilla. REASON FOR CONSULTATION: Regarding assessment of chest pain. HISTORY OF PRESENT ILLNESS: This 66-year-old morbidly obese, white female, who fell two weeks ago, and has a musculoskeletal type chest pain with tenderness to palpation along the left parasternal area. She also has an exertional chest discomfort radiating to her left shoulder and arm, and has a history of a 01/12/2017 PCI procedure with the drug-eluting stents placed in the proximal and mid LAD jailing a 2 mm small diagonal branch which was left with a 90% ostial stenosis. She also had a successful stent at the proximal posterior descending branch of the right coronary artery. Her workup thus far has included three normal troponins. She has a history of a DVT and recent stenting and is on triple therapy including Xarelto, Plavix, and aspirin with drop in her hematocrit to 24, and with a low serum iron at 25. She is currently complaining of a migraine headache. Multiple medical problems. PAST SURGICAL HISTORY: Includes hysterectomy, cholecystectomy, carpal tunnel, exploratory lap, knee surgery, and D and C. SOCIAL HISTORY: . Lives with . Wheelchair-bound. No tobacco, alcohol, or illicit drugs. FAMILY HISTORY: Noncontributory. ALLERGIES: MULTIPLE ALLERGIES ARE NOTED INCLUDING IODINE. HOME MEDICATIONS: Home medication list and hospital medication list are reviewed. PHYSICAL EXAMINATION: VITAL SIGNS: Blood pressure 125/57, pulse is 79 and regular, respirations 18, and afebrile. GENERAL: Well developed. No acute distress. SKIN: Warm and dry, without rash. NODES: No lymphadenopathy. HEENT: Pupils equal, no xanthelasma, no earlobe crease. Consultation Report [id number] [facility] [place]. [address] NAME: KENDRA COLLADO : 50 STATUS : ADM Silva PAT#: [id number] AGE: 66 ADM/REG DATE : 02/11/17 MR#: [id number] REPORT SERV DATE: 02/15/17 DICTATED BY: ARCELIA GORDON JR. DATE: 02/12/17 REPORT STATUS : Draft TRANSCRIBED BY: MYRA DATE: 02/12/17 NECK: No JVD at 30 degrees, no thyromegaly, no carotid bruit. LUNGS: Clear to auscultation and percussion; no use of accessory muscles. Chest wall tenderness to palpation at left parasternal area. COR: No thrills, heaves, PMI normal. Normal S1, S2. No gallop. No rub. No murmur. ABD: Soft, nontender. No hepatosplenomegaly or mass. Aorta not palpably enlarged. EXT: Mild bilateral lower extremity edema. Hematoma at the left lateral thigh. MS: Back without spine or costovertebral angle tenderness. NEURO: Alert, oriented to time, place and person. No apparent anxiety or depression. Symmetric findings. DISCUSSION: 1. Two types of chest pain. One is clearly musculoskeletal pain tender to palpation at the left parasternal area. The other is possibly related to a small jailed 2 mm left diagonal branch following a stenting of the LAD on 01/12/2017. She is complaining of migraines this morning. We will add beta-aracelis. Inderal to see if we can help both the possible angina and the exertion related angina and the migraine headache, etc. 2. She has a drop in hemoglobin, on triple therapy including Xarelto, Plavix, and aspirin with history of DVT. Serum iron is 25. We will temporarily hold Xarelto and check stool hemoccults. Continue Plavix and aspirin. Sequential compression devices. 3. Due to morbid obesity, I feel that the best noninvasive assessment would be a PET scan in, and this has been ordered for today. Thank you for this consultation. PEDRO/MYRA Arcelia Gordon Jr., M.D. / [id number] CC: Refugio Garza
--- NOTE | ~2017-02-11 | DS ---
Discharge Summary [facility] [address] [place]. [address] NAME: KENDRA COLLADO : 50 STATUS : ADM Silva PAT#: [id number] AGE: 66 ADM/REG DATE : 02/11/17 MR#: [id number] REPORT SERV DATE: 02/15/17 DICTATED BY: TENNILLE PINEDA DATE: 02/15/17 REPORT STATUS : Draft TRANSCRIBED BY: MODL DATE: 02/15/17 ADMISSION DATE: 02/11/2017 DISCHARGE DATE: 02/15/2017 DIAGNOSES ON ADMISSION: 1. Recurrent chest pain. 2. Acute on chronic anemia. 3. History of iron deficiency anemia. 4. Left lower extremity cellulitis. 5. Chest wall possible costochondritis. 6. History of coronary artery disease. 7. History of deep vein thrombosis and PE, on chronic anticoagulation. 8. History of insulin-dependent diabetes mellitus type 2. 9. History of chronic pain, on chronic narcotics. DIAGNOSES ON DISCHARGE: 1. Chest pain, noncardiac in nature, resolved since admission, negative PET scan of the heart. 2. Chronic anemia, stable hemoglobin and hematocrit with history of iron deficiency anemia status post iron infusion. 3. Left lower extremity cellulitis, improved, afebrile, doing well. 4. Chest wall pain, resolved. 5. History of coronary artery disease, asymptomatic. 6. History of stent placement recently. 7. History of deep vein thrombosis and pulmonary emboli, GI was okay to continue Xarelto since she has stable hemoglobin and hematocrit. 8. History of hemorrhoids in the past. 9. History of diabetes, controlled. 10.Chronic pain, recommended to reduce the amount of narcotics. CONSULTANTS ON THE CASE: Loop Sewer Dr. Gordon, and also loss prevention investigator Dr. Browning was seeing the patient for Dr. Gannon in the weekend, and Infectious Disease doctor Dr. Arteaga. IMAGING STUDIES DONE DURING THIS HOSPITALIZATION: 1. Chest x-ray, 02/11/2017, changes of chronic bronchitis. Otherwise negative chest x- ray. 2. Myocardial PET scan, negative for ischemia. HISTORY OF PRESENT ILLNESS: Briefly, this is a very pleasant 66-year-old female with a history of multiple admissions to the hospital, very well known to Hospitalist Service, was admitted by my colleague Dr. Tena for chest pain and left lower extremity cellulitis. For the details, please see the history of present illness read by Dr. Tena. HOSPITAL COURSE: Briefly, the patient was admitted to the hospital. She had an evaluation by coating and baking operator, Dr. Gordon, who did a PET scan on her heart which was negative for ischemia, and the chest pain was noncardiac. It was a chest wall pain which subsequently Discharge Summary [address] [place]. [address] NAME: KENDRA COLLADO : 50 STATUS : ADM Silva PAT#: [id number] AGE: 66 ADM/REG DATE : 02/11/17 MR#: [id number] REPORT SERV DATE: 02/15/17 DICTATED BY: TENNILLE PINEDA DATE: 02/15/17 REPORT STATUS : Draft TRANSCRIBED BY: MYRA DATE: 02/15/17 resolved. Since the patient has migraine headaches, Dr. Gordon recommended to put her on propranolol 10 mg p.o. b.i.d., and we will put her on propranolol and she tolerated propranolol well, so we will give her propranolol prescription per recommendation of Dr. Gordon. Her blood pressure and heart rate were very stable in normal range on propranolol. The patient had left lower extremity cellulitis. She had a recent fall two weeks ago, and she had cellulitis on the leg. The patient was placed on vancomycin per Dr. Arteaga, Infectious Disease, and it was continued for hospitalization. It has improved a lot. Dr. Arteaga recommended the patient to go home since she is afebrile, has a normal white count, doing well, and continue doxycycline 100 mg p.o. b.i.d. for seven more days. Chronic anemia. The patient had chronic anemia, so she was given iron infusion here inpatient, her hemoglobin before iron infusion was 8.3, after iron infusion 8.9 and 8.8. The patient's requested iron infusion, it was given to her. She is doing well. She had a small amount of blood with bowel movement. It was related to her hemorrhoids. The patient said that she had hemorrhoids before. We consulted loss prevention investigator Dr. Browning, who also said that she had recent endoscopy, and he was okay to continue her Xarelto. The patient's blood sugar was in normal range. I recommended to decrease nighttime Levemir to 10 units, but she said that at home she eats more and she wants to continue her home medications dosages, so she wanted to continue 20 units of Levemir at nighttime in addition to 30 in the morning. Blood sugar was still controlled on this regimen. She has history of depression for which she takes Prozac at home, and she wanted to continue her Prozac. The patient is doing well. She needs to be discharged home, and she will follow up with her primary care physician, Tri Villar in a week with Dr. Antoni Montilla, Cardiology in two to three weeks, and with Dr. Gannon, Gastroenterology in two to three weeks. The patient was discharged in stable condition. DISCHARGE MEDICATIONS: Aspirin 81 mg a day; diclofenac 2 mg q.8 hours; Lipitor 10 mg a day; azathioprine 100 mg p.o. daily; Plavix 75 mg p.o. daily; Benadryl 25 at bedtime; Colace 200 daily; Flonase 2 sprays daily; folic acid 1 mg a day; Prozac 40 mg daily; Lasix 40 mg daily; NovoLog 10 units before meals; Levemir 30 units in the morning, and 20 units in the evening; levothyroxine 200 mcg daily; Claritin 10 mg daily; Linzess 290 mg with breakfast; Singulair 10 mg a day; Trileptal 150 p.o. daily; omeprazole 40 mg daily; MiraLAX 1 packet daily; Lyrica 75 daily; Xarelto 20 daily; trazodone 100 mg daily; propranolol 10 mg p.o. b.i.d., new prescription given to the patient; Klonopin 1 mg at bedtime; albuterol 2 puffs inhaled q.4 hours p.r.n.; Advair Diskus 250 inhaled twice a day; Xopenex 1 dose twice a day; Tylenol 500 mg p.o. three times daily p.r.n. for pain; baclofen 10 mg t.i.d. p.r.n.; Neurontin 300 t.i.d. p.r.n.; albuterol with ipratropium nebulization four times daily p.r.n.; metformin 1500 with supper; Robaxin 750 t.i.d.; Mucinex 1 tablet daily; and Roxicodone 50 mg q.6 hours p.r.n. The patient was strongly recommended to reduce the dose of oxycodone and to come off it, although she wants to continue all of her home medications. Phenergan 25 p.o. b.i.d. as needed; doxycycline 100 mg p.o. b.i.d. for seven days, prescription given by Dr. Arteaga. I spent 45 minutes on discharge. The patient was discharged in stable condition. Discharge Summary [address] [address] NAME: KENDRA COLLADO : 50 STATUS : ADM Silva PAT#: [id number] AGE: 66 ADM/REG DATE : 02/11/17 MR#: [id number] REPORT SERV DATE: 02/15/17 DICTATED BY: TENNILLE PINEDA DATE: 02/15/17 REPORT STATUS : Draft TRANSCRIBED BY: MYRA DATE: 02/15/17 DICTATED BY: Refugio Garza/MYRA Tennille Pineda M.D. / [id number] CC: Refugio Garza
[2017-02-11 17:52] LABS: BASOPHILS 0.5 %; BASOPHILS ABSOLUTE 0.03 10/3/uL (0.0-0.16); EOSINOPHILS 1.8 %; EOSINOPHILS ABSOLUTE 0.11 10/3/uL (0.0-0.53); HEMOGLOBIN 8.8 g/dL (12.0-16.0); IMMATURE GRANULOCYTES 0.5 %; IMMATURE GRANULOCYTES ABSOLUTE 0.03 10/3/uL (0.0-0.11); LYMPHOCYTES 21.3 %; LYMPHOCYTES ABSOLUTE 1.28 10/3/uL (0.67-4.30); MEAN CORPUSCULAR HEMOGLOB 28.8 pg (26.0-34.0); MEAN PLATELET VOLUME 8.8 fL (9.2-13.0); MONOCYTES 6.5 %; MONOCYTES ABSOLUTE 0.39 10/3/uL (0.21-1.20); NEUTROPHILS 69.4 %; NEUTROPHILS ABSOLUTE 4.18 10/3/uL (2.02-8.40); PLATELET COUNT 315 10/3/uL (150-400); RBC DISTRIBUTION WIDTH 14.6 % (12.0-16.0); RED CELL COUNT 3.06 10/6/uL (4.0-5.6)
[2017-02-11 17:53] LABS: HEMATOCRIT 27.9 % (36.0-48.0); MANUAL DIFF NO %; MEAN CORPUS HGB CONC 31.5 g/dL (32.0-36.0); MEAN CORPUSCULAR VOLUME 91.2 fL (80-100)
[2017-02-11 18:00] LABS: INTERNATIONAL NORMAL RATI 1.1 UNITS (-); PARTIAL THROMBO TIME 34.9 SEC (22.5-37.2); PROTIME (NOT ORD) 13.9 SEC (12.0-14.5)
[2017-02-11 18:07] LABS: BUN (BLOOD UREA NITROGEN) 15 MG/DL (6-23); CALCIUM, SERUM 8.3 MG/DL (8.5-10.4); CHEST PAIN PROFILE TAT 0 Hrs 19 Mins; CHLORIDE, SERUM 95 MMOL/L (96-112); CREATININE 0.77 MG/DL (0.55-1.02); GFR AFRICAN AMERICAN 93 ML/MIN (>=60); GFR NON AFRICAN AMERICAN 80 ML/MIN (>=60); POTASSIUM, SERUM 3.9 MMOL/L (3.5-5.3); SODIUM, SERUM 135 MMOL/L (135-148); TROPONIN I <0.02 NG/ML (<0.05)
[2017-02-11 18:09] LABS: CO2 (CARBON DIOXIDE) 34 MMOL/L (24-34); GLUCOSE, SERUM 109 MG/DL (60-99)
[2017-02-11] MEDS ORDERED: ASAB PO (19:04)
[2017-02-11] MEDS ORDERED: ACET500CAP PO (19:04)
[2017-02-11] MEDS ORDERED: ADVAIR230P INH (19:04)
[2017-02-11] MEDS ORDERED: LIOR10 PO (19:05)
[2017-02-11] MEDS ORDERED: LIPITOR10 PO (19:05)
[2017-02-11] MEDS ORDERED: AZASAN100 MG PO (19:05)
[2017-02-11] MEDS ORDERED: KLONO1 PO (19:06)
[2017-02-11] MEDS ORDERED: PLAVIX PO (19:06)
[2017-02-11] MEDS ORDERED: VOLTAREN1 % TOP (19:06)
[2017-02-11] MEDS ORDERED: BEN25 PO (19:06)
[2017-02-11] MEDS ORDERED: DSS PO (19:07)
[2017-02-11] MEDS ORDERED: FOLIC PO (19:07)
[2017-02-11] MEDS ORDERED: FLONASE NAS (19:07)
[2017-02-11] MEDS ORDERED: L40 PO (19:07)
[2017-02-11] MEDS ORDERED: DUONEB INH (19:08)
[2017-02-11] MEDS ORDERED: NOVOLOG SC (19:08)
[2017-02-11] MEDS ORDERED: NEUR300 PO (19:08)
[2017-02-11] MEDS ORDERED: LEVEMIR SC ×2 (19:09)
[2017-02-11] MEDS ORDERED: LEVOTHYROXIN200 MCG PO (19:09)
[2017-02-11] MEDS ORDERED: XOPENEX1.25 MG/3 INH (19:09)
[2017-02-11] MEDS ORDERED: LINZESS 290 M290 MCG PO (19:10)
[2017-02-11] MEDS ORDERED: LYRICA75 PO (19:11)
[2017-02-11] MEDS ORDERED: CLARIT10 PO (19:11)
[2017-02-11] MEDS ORDERED: GLUCOPHXR PO (19:12)
[2017-02-11] MEDS ORDERED: SINGULAIR1 PO (19:12)
[2017-02-11] MEDS ORDERED: METHOC750B PO (19:12)
[2017-02-11] MEDS ORDERED: MUCINEX DM TABLET PO (19:13)
[2017-02-11] MEDS ORDERED: PRILOSEC40 MG PO (19:13)
[2017-02-11] MEDS ORDERED: TRILEP150 PO (19:13)
[2017-02-11] MEDS ORDERED: TRAZ100 PO (19:14)
[2017-02-11] MEDS ORDERED: PROVHFA INH (19:14)
[2017-02-11] MEDS ORDERED: PR25 PO (19:14)
[2017-02-11] MEDS ORDERED: ROXICODONE15 MG PO (19:14)
[2017-02-11] MEDS ORDERED: MIRALAX POWDER1 PKT PO (19:14)
[2017-02-11] MEDS ORDERED: XARELTO20 MG PO (19:15)
[2017-02-12 01:39] LABS: FERRITIN 101 NG/ML (8-252); IRON BINDING CAPACITY 355 MCG/DL (225-410); IRON, SERUM 25 MCG/DL (35-150); TROPONIN I <0.02 NG/ML (<0.05)
[2017-02-12 01:41] LABS: CK-MB 1.9 NG/ML; CPK 64 U/L (0-200)
[2017-02-12 06:11] LABS: CALCIUM, SERUM 8.4 MG/DL (8.5-10.4); CHLORIDE, SERUM 99 MMOL/L (96-112); CO2 (CARBON DIOXIDE) 31 MMOL/L (24-34); CPK 51 U/L (0-200); GFR AFRICAN AMERICAN 105 ML/MIN (>=60); GFR NON AFRICAN AMERICAN 90 ML/MIN (>=60); GLUCOSE, SERUM 110 MG/DL (60-99); POTASSIUM, SERUM 3.9 MMOL/L (3.5-5.3); SODIUM, SERUM 135 MMOL/L (135-148); TROPONIN I <0.02 NG/ML (<0.05)
[2017-02-12 06:12] LABS: BUN (BLOOD UREA NITROGEN) 11 MG/DL (6-23); CK-MB 1.8 NG/ML
[2017-02-12 06:13] LABS: BASOPHILS 0.4 %; BASOPHILS ABSOLUTE 0.02 10/3/uL (0.0-0.16); HEMOGLOBIN 7.7 g/dL (12.0-16.0); IMMATURE GRANULOCYTES 0.8 %; IMMATURE GRANULOCYTES ABSOLUTE 0.04 10/3/uL (0.0-0.11); LYMPHOCYTES 23.6 %; LYMPHOCYTES ABSOLUTE 1.19 10/3/uL (0.67-4.30); MEAN CORPUS HGB CONC 31.8 g/dL (32.0-36.0); MEAN CORPUSCULAR HEMOGLOB 28.8 pg (26.0-34.0); MEAN CORPUSCULAR VOLUME 90.6 fL (80-100); MEAN PLATELET VOLUME 8.7 fL (9.2-13.0); MONOCYTES 6.9 %; MONOCYTES ABSOLUTE 0.35 10/3/uL (0.21-1.20); NEUTROPHILS 66.3 %; NEUTROPHILS ABSOLUTE 3.35 10/3/uL (2.02-8.40); PLATELET COUNT 265 10/3/uL (150-400); RBC DISTRIBUTION WIDTH 14.5 % (12.0-16.0); RED CELL COUNT 2.67 10/6/uL (4.0-5.6); WHITE BLOOD CELLS 5.1 10/3/uL (4.5-10.5)
[2017-02-12 06:15] LABS: HEMATOCRIT 24.2 % (36.0-48.0); MANUAL DIFF NO %
[2017-02-13 04:38] LABS: CALCIUM, SERUM 8.2 MG/DL (8.5-10.4); CHLORIDE, SERUM 99 MMOL/L (96-112); CO2 (CARBON DIOXIDE) 33 MMOL/L (24-34); CREATININE 0.78 MG/DL (0.55-1.02); GFR AFRICAN AMERICAN 92 ML/MIN (>=60); GFR NON AFRICAN AMERICAN 79 ML/MIN (>=60); POTASSIUM, SERUM 4.2 MMOL/L (3.5-5.3); SODIUM, SERUM 137 MMOL/L (135-148)
[2017-02-13 04:39] LABS: BUN (BLOOD UREA NITROGEN) 17 MG/DL (6-23); GLUCOSE, SERUM 147 MG/DL (60-99)
[2017-02-13 04:40] LABS: BASOPHILS 0.6 %; BASOPHILS ABSOLUTE 0.03 10/3/uL (0.0-0.16); EOSINOPHILS 3.3 %; EOSINOPHILS ABSOLUTE 0.16 10/3/uL (0.0-0.53); HEMATOCRIT 26.2 % (36.0-48.0); HEMOGLOBIN 8.3 g/dL (12.0-16.0); IMMATURE GRANULOCYTES 0.2 %; IMMATURE GRANULOCYTES ABSOLUTE 0.01 10/3/uL (0.0-0.11); LYMPHOCYTES 20.1 %; LYMPHOCYTES ABSOLUTE 0.97 10/3/uL (0.67-4.30); MEAN CORPUS HGB CONC 31.7 g/dL (32.0-36.0); MEAN CORPUSCULAR HEMOGLOB 29.3 pg (26.0-34.0); MEAN CORPUSCULAR VOLUME 92.6 fL (80-100); MEAN PLATELET VOLUME 8.9 fL (9.2-13.0); MONOCYTES ABSOLUTE 0.34 10/3/uL (0.21-1.20); NEUTROPHILS 68.8 %; NEUTROPHILS ABSOLUTE 3.32 10/3/uL (2.02-8.40); PLATELET COUNT 268 10/3/uL (150-400); RBC DISTRIBUTION WIDTH 14.8 % (12.0-16.0); RED CELL COUNT 2.83 10/6/uL (4.0-5.6); WHITE BLOOD CELLS 4.8 10/3/uL (4.5-10.5)
[2017-02-13 04:46] LABS: MANUAL DIFF NO %
[2017-02-14 04:54] LABS: BASOPHILS 0.4 %; BASOPHILS ABSOLUTE 0.02 10/3/uL (0.0-0.16); EOSINOPHILS 3.1 %; EOSINOPHILS ABSOLUTE 0.14 10/3/uL (0.0-0.53); HEMATOCRIT 27.7 % (36.0-48.0); HEMOGLOBIN 8.9 g/dL (12.0-16.0); IMMATURE GRANULOCYTES 0.4 %; IMMATURE GRANULOCYTES ABSOLUTE 0.02 10/3/uL (0.0-0.11); LYMPHOCYTES 24.9 %; LYMPHOCYTES ABSOLUTE 1.11 10/3/uL (0.67-4.30); MEAN CORPUS HGB CONC 32.1 g/dL (32.0-36.0); MEAN CORPUSCULAR HEMOGLOB 29.6 pg (26.0-34.0); MONOCYTES 8.1 %; MONOCYTES ABSOLUTE 0.36 10/3/uL (0.21-1.20); NEUTROPHILS 63.1 %; NEUTROPHILS ABSOLUTE 2.81 10/3/uL (2.02-8.40); PLATELET COUNT 265 10/3/uL (150-400); RBC DISTRIBUTION WIDTH 14.9 % (12.0-16.0); RED CELL COUNT 3.01 10/6/uL (4.0-5.6); WHITE BLOOD CELLS 4.5 10/3/uL (4.5-10.5)
[2017-02-14 04:55] LABS: MANUAL DIFF NO %
[2017-02-14 05:09] LABS: BUN (BLOOD UREA NITROGEN) 15 MG/DL (6-23); CALCIUM, SERUM 8.9 MG/DL (8.5-10.4); CHLORIDE, SERUM 101 MMOL/L (96-112); CO2 (CARBON DIOXIDE) 31 MMOL/L (24-34); CREATININE 0.77 MG/DL (0.55-1.02); GFR AFRICAN AMERICAN 93 ML/MIN (>=60); GFR NON AFRICAN AMERICAN 80 ML/MIN (>=60); SODIUM, SERUM 137 MMOL/L (135-148)
[2017-02-14 05:12] LABS: GLUCOSE, SERUM 69 MG/DL (60-99)
[2017-02-15 05:42] LABS: BASOPHILS 0.7 %; BASOPHILS ABSOLUTE 0.03 10/3/uL (0.0-0.16); EOSINOPHILS 3.3 %; EOSINOPHILS ABSOLUTE 0.15 10/3/uL (0.0-0.53); HEMATOCRIT 27.9 % (36.0-48.0); HEMOGLOBIN 8.8 g/dL (12.0-16.0); IMMATURE GRANULOCYTES 0.7 %; IMMATURE GRANULOCYTES ABSOLUTE 0.03 10/3/uL (0.0-0.11); LYMPHOCYTES 22.7 %; LYMPHOCYTES ABSOLUTE 1.03 10/3/uL (0.67-4.30); MANUAL DIFF NO %; MEAN CORPUS HGB CONC 31.5 g/dL (32.0-36.0); MEAN CORPUSCULAR HEMOGLOB 29.1 pg (26.0-34.0); MEAN CORPUSCULAR VOLUME 92.4 fL (80-100); MEAN PLATELET VOLUME 8.9 fL (9.2-13.0); MONOCYTES 9.3 %; MONOCYTES ABSOLUTE 0.42 10/3/uL (0.21-1.20); NEUTROPHILS 63.3 %; NEUTROPHILS ABSOLUTE 2.88 10/3/uL (2.02-8.40); PLATELET COUNT 251 10/3/uL (150-400); RBC DISTRIBUTION WIDTH 14.9 % (12.0-16.0); RED CELL COUNT 3.02 10/6/uL (4.0-5.6); WHITE BLOOD CELLS 4.5 10/3/uL (4.5-10.5)
[2017-02-15 05:53] LABS: BUN (BLOOD UREA NITROGEN) 11 MG/DL (6-23); CALCIUM, SERUM 8.4 MG/DL (8.5-10.4); CHLORIDE, SERUM 104 MMOL/L (96-112); CO2 (CARBON DIOXIDE) 31 MMOL/L (24-34); CREATININE 0.68 MG/DL (0.55-1.02); GFR AFRICAN AMERICAN 106 ML/MIN (>=60); GFR NON AFRICAN AMERICAN 91 ML/MIN (>=60); GLUCOSE, SERUM 154 MG/DL (60-99); POTASSIUM, SERUM 4.1 MMOL/L (3.5-5.3); SODIUM, SERUM 139 MMOL/L (135-148)
[2017-02-15] MEDS ORDERED: MONODOX100 MG PO (12:31)
[2017-02-15] MEDS ORDERED: I10 PO (12:32)
== END 2017-02-15 13:09 | disposition home or self-care (01) | DRG 206 ==
LOC: ER 17:59 → CDU1 20:42
PROVIDERS: Hospitalist; Specialist
DX: M94.0 Chondrocostal junction syndrome [Tietze] (principal); M32.9 Systemic lupus erythematosus, unspecified; Z68.41 Body mass index [BMI] 40.0-44.9, adult; L03.116 Cellulitis of left lower limb; J44.9 Chronic obstructive pulmonary disease, unspecified; E66.01 Morbid (severe) obesity due to excess calories; I25.10 Atherosclerotic heart disease of native coronary artery without angina pectoris; G43.909 Migraine, unspecified, not intractable, without status migrainosus; E11.9 Type 2 diabetes mellitus without complications; I10 Essential (primary) hypertension; G89.29 Other chronic pain; M06.9 Rheumatoid arthritis, unspecified; K64.9 Unspecified hemorrhoids; Z86.718 Personal history of other venous thrombosis and embolism; Z79.4 Long term (current) use of insulin; Z86.711 Personal history of pulmonary embolism; Z79.891 Long term (current) use of opiate analgesic; Z95.5 Presence of coronary angioplasty implant and graft; Z79.82 Long term (current) use of aspirin; Z79.02 Long term (current) use of antithrombotics/antiplatelets; Z79.01 Long term (current) use of anticoagulants; Z88.0 Allergy status to penicillin; Z88.2 Allergy status to sulfonamides; Z90.710 Acquired absence of both cervix and uterus; Z90.49 Acquired absence of other specified parts of digestive tract; Z99.3 Dependence on wheelchair; Z91.041 Radiographic dye allergy status; E03.9 Hypothyroidism, unspecified; Z88.1 Allergy status to other antibiotic agents; Z88.8 Allergy status to other drugs, medicaments and biological substances
CPT/HCPCS: 36415; 71010; 78492; 80048; 80202; 82272; 82550; 82553; 82728; 82962; 83540; 83550; 83605; 83735; 83880; 84484; 85025; 85610; 85730; 86850; 86900; 86901; 87040; 93005; 93017; 94640; 96374; 96375; 96376; 99285; A9270-GY; A9555; J0360; J1750; J2405; J2785; J3370; J7500